=== PATIENT | female | born 1975 | race Caucasian/White ===

== ENCOUNTER 2020-03-09 13:34 | Emergency (ER) | payer OTHER ==
[2020-03-09] MEDS ORDERED: Ketorolac 30 MG/ML SDV IVPUSH ONE (13:57)
[2020-03-09] MEDS ORDERED: Ondansetron 4 MG/2 ML SDV IVPUSH ONE (13:57)
[2020-03-09] MEDS ORDERED: Sodium Chloride 0.9% 1,000 ML IV SCH (14:00)
--- NOTE | 2020-03-09 14:04 | EDM.PDOC ---
ED HPI GENERAL MEDICAL PROBLEM - General Chief Complaint: Gastrointestinal Problem Stated Complaint: ABD Time Seen by Provider: 03/09/20 13:40 Source of Information: Reports: Patient History Limitations: Reports: No Limitations - History of Present Illness INITIAL COMMENTS - FREE TEXT/NARRATIVE: c/o N and right sided abd pain pt states she has been anxious all week, often has issues with anxiety, has not been eating well the past 2d, took CBD oil 2 squirts last night hs which she uses for anxiety. Went to bed at 11p, did not sleep well as often occurs, up at 7:15a, no bfast. At 8a she had pain in her RLQ that radiated to her RUQ and to her R shoulder, now is tender most everywhere. went to walk-in who sent her here took ibuprofen 400 mg with sip H2O at 8a which did not help, not else to eat or drink felt sweaty and chilled at home, does not have thermometer some N now, V x 1 at home pain better when lies a certain way, inc'd with ambulation had a loose BM x 1 this morning which is usual for her feels abd bloating Onset: Sudden - Related Data Allergies Allergy/AdvReac Type Severity Reaction Status Date / Time ampicillin Allergy Other Verified 03/09/20 14:39 Home Meds: Home Meds Cannabidiol (Cbd) Extract [CBD Oil] 1 each PO ASDIRECTED PRN 03/09/20 [History] ED ROS GENERAL - Review of Systems Review Of Systems: See Below Constitutional: Reports: No Symptoms HEENT: Reports: No Symptoms Respiratory: Reports: No Symptoms Cardiovascular: Reports: No Symptoms Endocrine: Reports: No Symptoms GI/Abdominal: Reports: Abdominal Pain, Nausea, Vomiting : Reports: No Symptoms Musculoskeletal: Reports: Other (R shoulder pain) Skin: Reports: No Symptoms Neurological: Reports: No Symptoms Psychiatric: Reports: No Symptoms Hematologic/Lymphatic: Reports: No Symptoms Immunologic: Reports: No Symptoms ED EXAM, GENERAL - Physical Exam Exam: See Below Exam Limited By: No Limitations General Appearance: Alert, WD/WN, No Apparent Distress, Other (no) Eye Exam: Bilateral Eye: EOMI, PERRL Ears: Hearing Grossly Normal Nose: Normal Inspection, Normal Mucosa, No Blood Throat/Mouth: Normal Inspection, Normal Lips, Normal Teeth, Normal Gums, Normal Oropharynx, Normal Voice, No Airway Compromise Head: Atraumatic, Normocephalic Neck: Normal Inspection, Supple, Non-Tender, Full Range of Motion. No: Lymphadenopathy (R), Lymphadenopathy (L) Respiratory/Chest: No Respiratory Distress, Lungs Clear, Normal Breath Sounds, No Accessory Muscle Use, Chest Non-Tender Cardiovascular: Regular Rate, Rhythm, No Edema, No Gallop, No Murmur, No Rub GI/Abdominal: Soft, Other (very soft, inc'd adipose tissue, no distention, nonspecific tender along length of colon to even 2 cm compression of skin, NT above R inguinal ligments, is tender in the periumbical area alone, good ROM R shoulder without pain) Back Exam: Normal Inspection, Full Range of Motion. No: CVA Tenderness (R), CVA Tenderness (L) Extremities: Normal Inspection, Normal Range of Motion, Non-Tender, No Pedal Edema Neurological: Alert, Oriented, CN II-XII Intact, Normal Cognition, No Motor/Sensory Deficits Psychiatric: Other (mild anxiety) Skin Exam: Warm, Dry, Intact, Normal Color, No Rash Lymphatic: No Adenopathy Course - Vital Signs Last Recorded V/S: Last Vital Signs Temp 36.2 C 03/09/20 13:37 Pulse 96 03/09/20 13:37 Resp 14 03/09/20 13:37 BP 128/67 03/09/20 13:37 Pulse Ox 98 03/09/20 13:37 - Orders/Labs/Meds Orders: Active Orders 24 hr Category Date Time Status Abdomen Pelvis w Cont [CT] Stat Exams 03/09/20 14:48 Ordered HCG QUANTITATIVE [CHEM] Stat Lab 03/09/20 15:28 Ordered Sodium Chloride 0.9% [Normal Saline] 1,000 ml Med 03/09/20 14:00 Active IV ASDIRECTED Sodium Chloride 0.9% [Saline Flush] Med 03/09/20 15:16 Active 10 ml FLUSH ASDIRECTED PRN Medication Orders Sodium Chloride (Normal Saline) 1,000 mls @ 999 mls/hr IV ASDIRECTED DAY Last Admin: 03/09/20 14:29 Dose: 999 mls/hr Documented by: DAVIDA Sodium Chloride (Saline Flush) 10 ml FLUSH ASDIRECTED PRN PRN Reason: flush Last Admin: 03/09/20 15:17 Dose: 10 ml Documented by: DAVIDA Labs: Laboratory Tests 03/09/20 03/09/20 03/09/20 Range/Units 14:30 14:30 14:30 WBC 12.1 H (4.5-12.0) X10-3/uL RBC 4.21 (3.23-5.20) x10(6)uL Hgb 12.1 (11.5-15.5) g/dL Hct 37.1 (30.0-51.3) % MCV 88.2 (80-96) fL MCH 28.8 (27.7-33.6) pg MCHC 32.7 (32.2-35.4) g/dL RDW 12.3 (11.5-15.5) % Plt Count 250 (125-369) X10(3)uL MPV 6.5 L (7.4-10.4) fL Neut % (Auto) 90.5 H (46-82) % Lymph % (Auto) 6.1 L (13-37) % [place] % (Auto) 3.0 L (4-12) % Eos % (Auto) 0 L (1.0-5.0) % Baso % (Auto) 0 (0-2) % Neut # (Auto) 11.0 H (1.6-8.3) # Lymph # (Auto) 0.7 (0.6-5.0) # [place] # (Auto) 0.4 (0.0-1.3) # Eos # (Auto) 0.0 (0.0-0.8) # Baso # (Auto) 0.0 (0.0-0.2) # Sodium 138 (135-145) mmol/L Potassium 3.8 (3.5-5.3) mmol/L Chloride 105 (100-110) mmol/L Carbon Dioxide 23 (21-32) mmol/L BUN 13 (7-18) mg/dL Creatinine 0.9 (0.55-1.02) mg/dL Est Cr Clr Drug Dosing TNP Estimated GFR (MDRD) > 60 (>60) BUN/Creatinine Ratio 14.4 (9-20) Glucose 121 H (80-116) mg/dL Calcium 7.9 L (8.6-10.2) mg/dL Total Bilirubin 0.7 (0.1-1.3) mg/dL AST 30 H (5-25) IU/L ALT 45 H (12-36) U/L Alkaline Phosphatase 57 (56-112) IU/L C-Reactive Protein 0.9 (0.5-0.9) mg/dL Total Protein 5.9 L (6.0-8.0) g/dL Albumin 3.2 L (3.5-5.2) g/dL Globulin 2.7 g/dL Albumin/Globulin Ratio 1.2 Lipase 63 L (73-393) U/L Urine Color (YELLOW) Urine Appearance (CLEAR) Urine pH (5.0-6.5) Ur Specific Jew[place] (1.010-1.025) Urine Protein (NEGATIVE) mg/dL Urine Glucose (UA) (NORMAL) mg/dL Urine Ketones (NEGATIVE) mg/dL Urine Occult Blood (NEGATIVE) Urine Nitrite (NEGATIVE) Urine Bilirubin (NEGATIVE) Urine Urobilinogen (NEGATIVE) mg/dL Ur Leukocyte Esterase (NEGATIVE) Urine RBC (0-5) Urine WBC (0-5) Ur Squamous Epith Cells (NS,R,O) Urine Bacteria (NS) Urine Mucus (NS) Urine HCG, Qual (NEGATIVE) 03/09/20 03/09/20 Range/Units 15:00 15:00 WBC (4.5-12.0) X10-3/uL RBC (3.23-5.20) x10(6)uL Hgb (11.5-15.5) g/dL Hct (30.0-51.3) % MCV (80-96) fL MCH (27.7-33.6) pg MCHC (32.2-35.4) g/dL RDW (11.5-15.5) % Plt Count (125-369) X10(3)uL MPV (7.4-10.4) fL Neut % (Auto) (46-82) % Lymph % (Auto) (13-37) % [place] % (Auto) (4-12) % Eos % (Auto) (1.0-5.0) % Baso % (Auto) (0-2) % Neut # (Auto) (1.6-8.3) # Lymph # (Auto) (0.6-5.0) # [place] # (Auto) (0.0-1.3) # Eos # (Auto) (0.0-0.8) # Baso # (Auto) (0.0-0.2) # Sodium (135-145) mmol/L Potassium (3.5-5.3) mmol/L Chloride (100-110) mmol/L Carbon Dioxide (21-32) mmol/L BUN (7-18) mg/dL Creatinine (0.55-1.02) mg/dL Est Cr Clr Drug Dosing Estimated GFR (MDRD) (>60) BUN/Creatinine Ratio (9-20) Glucose (80-116) mg/dL Calcium (8.6-10.2) mg/dL Total Bilirubin (0.1-1.3) mg/dL AST (5-25) IU/L ALT (12-36) U/L Alkaline Phosphatase (56-112) IU/L C-Reactive Protein (0.5-0.9) mg/dL Total Protein (6.0-8.0) g/dL Albumin (3.5-5.2) g/dL Globulin g/dL Albumin/Globulin Ratio Lipase (73-393) U/L Urine Color Yellow (YELLOW) Urine Appearance Slightly cloudy (CLEAR) Urine pH 5.0 (5.0-6.5) Ur Specific [place]ett 1.025 (1.010-1.025) Urine Protein Negative (NEGATIVE) mg/dL Urine Glucose (UA) Normal (NORMAL) mg/dL Urine Ketones 50 H (NEGATIVE) mg/dL Urine Occult Blood Negative (NEGATIVE) Urine Nitrite Negative (NEGATIVE) Urine Bilirubin Negative (NEGATIVE) Urine Urobilinogen Normal (NEGATIVE) mg/dL Ur Leukocyte Esterase Negative (NEGATIVE) Urine RBC 0-5 (0-5) Urine WBC 0-5 (0-5) Ur Squamous Epith Cells Few H (NS,R,O) Urine Bacteria Moderate H (NS) Urine Mucus Few H (NS) Urine HCG, Qual Positive H (NEGATIVE) Meds: Medications Generic Name Dose Route Start Last Admin Trade Name Freq PRN Reason Stop Dose Admin Sodium Chloride 1,000 mls @ 999 mls/hr 03/09/20 14:00 03/09/20 14:29 Normal Saline IV 999 mls/hr ASDIRECTED DAY Administration Sodium Chloride 10 ml 03/09/20 15:16 03/09/20 15:17 Saline Flush FLUSH 10 ml ASDIRECTED PRN Administration flush Discontinued Medications Generic Name Dose Route Start Last Admin Trade Name Beverly PRN Reason Stop Dose Admin Sodium Chloride 1,000 mls @ 999 mls/hr 03/09/20 14:45 03/09/20 15:16 Normal Saline IV 03/09/20 15:45 999 mls/hr .BOLUS ONE Administration Ketorolac Tromethamine 30 mg 03/09/20 13:57 03/09/20 14:29 Toradol IVPUSH 03/09/20 13:58 30 mg ONETIME ONE Administration Morphine Sulfate 4 mg 03/09/20 14:45 03/09/20 14:57 Morphine IVPUSH 03/09/20 14:46 4 mg ONETIME ONE Administration Ondansetron HCl 4 mg 03/09/20 13:57 03/09/20 14:29 Zofran IVPUSH 03/09/20 13:58 4 mg ONETIME ONE Administration - Re-Assessments/Exams Free Text/Narrative Re-Assessment/Exam: 03/09/20 16:18 positive , yet has generalized abd pain and R shoulder pain, could have a ruptured ectopic POCUS without FHT, there is placental pulsation to the right of midline, uterus distended with complex tissue present in uterine cavity, no free fluid appreciated at either flank will send to [facility] ED to ED, accepted by by Dr Deutsch LMP 01-28-20, menses have been irregular, SAB x 5, has 3 children, all FT and continued with abd pain despite Toradol 30 mg IV, MS 4 mg IV, another MS 4 mg IV given abd tenderness is generalized, not localized to lower quadrants pt agrees to transfer, pt understands she may have a ruptured ectopic pt is 5 6/7 wk gestation by LMP, HCG 19,333 is c/w 5 6/7 weeks gestation will defer on antbx for UTI for time considerations as pt has allergy to ampicillin Departure - Departure Time of Disposition: 16:16 Disposition: DC/Tfer to Other 70 Condition: Fair Clinical Impression: Generalized abdominal pain affecting , Right shoulder pain, UTI, Urinary tract infectious disease, Leukocytosis, Left shift, Moderate dehydration, Ketonuria - Discharge Information *PRESCRIPTION DRUG MONITORING PROGRAM REVIEWED*: Not Applicable *COPY OF PRESCRIPTION DRUG MONITORING REPORT IN PATIENT MAXWELL: Not Applicable Referrals: PCP,Unknown [Primary Care Provider] - Forms: ED Department Discharge Sepsis Event Note (ED) - Focused Exam Vital Signs: Vital Signs Temp Pulse Resp BP Pulse Ox 03/09/20 13:37 36.2 C 96 14 128/67 98 - My Orders Last 24 Hours: My Active Orders 03/09/20 14:00 Sodium Chloride 0.9% [Normal Saline] 1,000 ml IV ASDIRECTED 03/09/20 14:48 Abdomen Pelvis w Cont [CT] Stat 03/09/20 15:16 Sodium Chloride 0.9% [Saline Flush] 10 ml FLUSH ASDIRECTED PRN 03/09/20 15:28 HCG QUANTITATIVE [CHEM] Stat - Assessment/Plan Last 24 Hours: My Active Orders 03/09/20 14:00 Sodium Chloride 0.9% [Normal Saline] 1,000 ml IV ASDIRECTED 03/09/20 14:48 Abdomen Pelvis w Cont [CT] Stat 03/09/20 15:16 Sodium Chloride 0.9% [Saline Flush] 10 ml FLUSH ASDIRECTED PRN 03/09/20 15:28 HCG QUANTITATIVE [CHEM] Stat
[2020-03-09] MEDS ORDERED: Sodium Chloride 0.9% 1,000 ML IV ONE (14:45)
[2020-03-09] MEDS ORDERED: Morphine 4 MG/ML VIAL IVPUSH ONE ×2 (14:45→16:09)
[2020-03-09] MEDS ORDERED: Sodium Chloride 0.9% 10 ML Syringe FLUSH PRN (15:16)
== END 2020-03-09 17:16 | disposition other institution (70) ==
LOC: FB.ED 13:34
DX: O23.41 Unspecified infection of urinary tract in pregnancy, first trimester (principal); O99.281 Endocrine, nutritional and metabolic diseases complicating pregnancy, first trimester; E86.0 Dehydration; O99.89 Other specified diseases and conditions complicating pregnancy, childbirth and the puerperium; R10.84 Generalized abdominal pain; M25.511 Pain in right shoulder; O99.111 Other diseases of the blood and blood-forming organs and certain disorders involving the immune mechanism complicating pregnancy, first trimester; D72.829 Elevated white blood cell count, unspecified; R82.4 Acetonuria; Z88.1 Allergy status to other antibiotic agents
CPT/HCPCS: 36415; 80053; 81001; 81025; 83690; 84702; 85025; 86140; 87086; 96361; 96374; 96375; 96376; 99285-25; J1885; J2270; J2405; J7030

== ENCOUNTER 2020-08-21 20:26 | Emergency (ER) | payer OTHER ==
--- NOTE | 2020-08-21 20:50 | EDM.PDOC ---
ED HPI GENERAL MEDICAL PROBLEM - General Chief Complaint: General Stated Complaint: FATIGUE Time Seen by Provider: 08/21/20 20:40 Source of Information: Reports: Patient History Limitations: Reports: No Limitations - History of Present Illness INITIAL COMMENTS - FREE TEXT/NARRATIVE: Patient presented to the ED because of post covid symptoms-fatigue, dyspnea, and chest wall pain. She was diagnosed with Covid in May. 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: , Other (See Below) Other COMPLAINT ANALYST History: D and C's, Musculoskeletal History: Reports: Other (See Below) Other Musculoskeletal History: facture of right foot Psychiatric History: Reports: Anxiety - Past Surgical History GI Surgical History: Reports: Cholecystectomy Social & Family History - Family History Family Medical History: No Pertinent Family History - Caffeine Use Caffeine Use: Reports: Soda ED ROS GENERAL - Review of Systems Review Of Systems: See Below Constitutional: Reports: No Symptoms HEENT: Reports: No Symptoms Respiratory: Reports: Shortness of Breath Cardiovascular: Reports: Chest Pain, Dyspnea on Exertion Endocrine: Reports: No Symptoms GI/Abdominal: Reports: No Symptoms : Reports: No Symptoms Musculoskeletal: Reports: No Symptoms Skin: Reports: No Symptoms Neurological: Reports: No Symptoms Psychiatric: Reports: No Symptoms ED EXAM, GENERAL - Physical Exam Exam: See Below Exam Limited By: No Limitations General Appearance: Alert, No Apparent Distress Ears: Normal External Exam Nose: Normal Inspection, Normal Mucosa, No Blood Throat/Mouth: Normal Inspection, Normal Lips, Normal Teeth Head: Atraumatic, Normocephalic Neck: Normal Inspection, Supple, Non-Tender, Full Range of Motion Respiratory/Chest: No Respiratory Distress, Lungs Clear, Normal Breath Sounds Cardiovascular: Normal Peripheral Pulses, Regular Rate, Rhythm, No Edema, No Gallop GI/Abdominal: Normal Bowel Sounds, Soft, Non-Tender, No Organomegaly Back Exam: Normal Inspection, Full Range of Motion Extremities: Normal Inspection, Normal Range of Motion, Non-Tender Neurological: Alert, Oriented, CN II-XII Intact, Normal Cognition Course - Vital Signs Text/Narrative:: labs EKG was discussed with patient EKG-NSR Trop-neg Last Recorded V/S: Last Vital Signs Temp 36.9 C 08/21/20 23:04 Pulse 58 L 08/21/20 23:04 Resp 18 08/21/20 23:04 BP 111/65 08/21/20 23:04 Pulse Ox 99 08/21/20 23:04 - Orders/Labs/Meds Labs: Laboratory Tests 08/21/20 08/21/20 08/21/20 Range/Units 21:30 21:30 21:30 WBC 5.7 (3.0-10.3) x10-3/uL RBC 5.01 (3.60-5.20) x10(6)uL Hgb 12.7 (11.4-15.5) g/dL Hct 39.5 (34.2-48.2) % MCV 78.9 (76.7-100.5) fL MCH 25.3 (23.9-33.9) pg MCHC 32.1 (31.9-34.8) g/dL RDW 15.5 (12.3-16.5) % Plt Count 254 (151-488) x10(3)uL MPV 6.7 L (7.1-12.4) fL Neut % (Auto) 65.3 (30.8-76.2) % Lymph % (Auto) 25.0 (18.4-52.1) % [place] % (Auto) 8.8 (4.4-15.7) % Eos % (Auto) 0.5 L (0.6-8.1) % Baso % (Auto) 0.4 (0.2-1.5) % Neut # (Auto) 3.7 (1.5-6.3) x10-3/uL Lymph # (Auto) 1.4 (1.0-4.4) x10-3/uL [place] # (Auto) 0.5 (0.3-1.0) x10-3/uL Eos # (Auto) 0.0 (0.0-0.8) x10-3/uL Baso # (Auto) 0.0 (0.0-0.1) x10-3/uL Sodium 141 (135-145) mmol/L Potassium 3.6 (3.5-5.3) mmol/L Chloride 104 (100-110) mmol/L Carbon Dioxide 24 (21-32) mmol/L BUN 12 (7-18) mg/dL Creatinine 0.9 (0.55-1.02) mg/dL Est Cr Clr Drug Dosing 64.61 mL/min Estimated GFR (MDRD) > 60 (>60) BUN/Creatinine Ratio 13.3 (9-20) Glucose 107 (80-116) mg/dL Calcium 9.8 (8.6-10.2) mg/dL Troponin I < 4.0 L (4.0-60.3) pg/mL Departure - Departure Time of Disposition: 20:50 Disposition: Home, Self-Care 01 Condition: Good Clinical Impression: COVID-19, Chest wall pain - Discharge Information Instructions: COVID-19 Frequently Asked Questions Referrals: PCP,None [Primary Care Provider] - Forms: ED Department Discharge Additional Instructions: All your test are normal The symptoms that you are having is due to complications of COVID Follow up as needed Sepsis Event Note (ED) - Focused Exam Vital Signs: Vital Signs Temp Pulse Resp BP Pulse Ox 08/21/20 23:04 36.9 C 58 L 18 111/65 99 08/21/20 20:35 36.7 C 67 18 121/80 98
== END 2020-08-21 22:45 | disposition home or self-care (01) ==
LOC: FB.ED 20:26
DX: U07.1 COVID-19 (principal); Z88.1 Allergy status to other antibiotic agents
CPT/HCPCS: 36415; 80048; 84484; 85025; 93005; 99285-25

== ENCOUNTER 2023-01-12 08:59 | Day surgery (SDC) | payer OTHER ==
[2023-01-12] MEDS ORDERED: Sodium Chloride 0.9% 10 ML Syringe FLUSH PRN (09:00)
[2023-01-12] MEDS ORDERED: Propofol 200 MG/20 ML SDV IV ONE (09:00)
[2023-01-12] MEDS ORDERED: Lidocaine 2% 5 ML SDV IV ONE (09:00)
[2023-01-12] MEDS: Lactated Ringers 1,000 ML IV SCH (09:50)
[2023-01-12] MEDS: Simethicone Drops 40 MG/0.6 ML 30 ML Bottle ONE (10:33)
== END 2023-01-12 12:00 | disposition home or self-care (01) ==
LOC: FB.SDS 08:59
PROVIDERS: ATTEND Surgery
DX: D12.6 Benign neoplasm of colon, unspecified (principal); K52.9 Noninfective gastroenteritis and colitis, unspecified; K92.1 Melena; Z80.0 Family history of malignant neoplasm of digestive organs
CPT/HCPCS: 00811; 88305; A9270-GY; J2704; J7120